=== PATIENT | female | born 1990 | race American Indian/Alaskan Native ===

== ENCOUNTER 2017-07-20 09:54 | Emergency (ER) | payer MEDICAID ==
[2017-07-20 10:47] VITALS: BP 108/66
--- NOTE | 2017-07-20 12:45 | Emergency Department Report ---
Blank Doc - Documentation Documentation: 27-year-old female presents to the hospital complaining of feeling something moving around in the lower part of her abdomen. Denies pain. Last menstrual cycle was in 01/13/2017. States she went [place] [facility] [place] and in May or early June and had negative test at that time. No vaginal bleeding. awaiting US results HCG [id number]
--- NOTE | 2017-07-20 13:52 | Ultrasound Report ---
FINAL REPORT EXAM: US OB > = 14 WEEKS FETUS HISTORY: abd pain TECHNIQUE: Grayscale and color doppler ultrasound of the fetus was performed for anatomic survey. PRIORS: None. FINDINGS: A single, live intrauterine fetus is present in cephalic presentation with a heart rate of 148 beats per minute. The placenta is grade 1 and left lateral in location. No evidence of placenta previa. The maternal cervix is closed measuring 3.2 centimeters in length. The amniotic fluid index is 9.9 centimeters. The 4 chamber view of the heart, stomach, urinary bladder, kidneys and cerebellum demonstrate no specific abnormality. The cisterna magna appears nondilated. No lateral ventricle dilation. The umbilical cord insertion on the fetus appears normal. Three-vessel umbilical cord was seen. The spine was visualized in its entirety without definite or specific abnormality. Biparietal diameter: 23 weeks and 4 days. Head circumference: 23 weeks and 4 days. Abdominal circumference: 23 weeks and 2 days. Femur length: 25 weeks and 4 days. Estimated gestational age based on ultrasound criteria is 24 weeks and 0 days with an HARRY of 11/09/2017. Growth is at the 77th percentile. Estimated weight is 668 grams. IMPRESSION: Live intrauterine fetus measuring at 24 weeks and 0 days gestational age with an HARRY of 11/09/2017. Normal anatomic survey.
--- NOTE | 2017-07-20 14:19 | Emergency Department Report ---
ED HPI - General Chief complaint: Abdominal Pain Stated complaint: UNKNOWN Time Seen by Provider: 07/20/17 12:40 Source: patient Mode of arrival: Ambulatory Limitations: No Limitations - History of Present Illness Initial comments: This is a 27-year-old female nontoxic, well nourished in appearance, no acute signs of distress presents to the ED with c/o of sensation of feeling that something is moving around the lower abdominal region. Patient stated she was seen in [facility] [place] [facility] [place] last [place] with [place] test. Patient stated her last menstrual cycle was in 01/13/2017. Patient denies any abdominal pain, vaginal bleeding, fever, chills, headache, nausea, vomiting, chest pain, shortness of breathe. Patient denies any urinary symptoms. Patient states allergies to Percocet. Denies significant PMH. -: month(s) (1) Location: pelvis Radiation: none Severity scale (0 -10): 0 Consistency: intermittent Improves with: none Worsens with: none Associated symptoms: denies other symptoms. denies: nausea/vomiting, vaginal bleeding, vaginal discharge, abdominal pain, dysuria, headache, vision changes, malaise, dysparuenia, rash, seizure, shortness of breath, syncope, weakness Vaginal bleeding: none :: Yes Number of weeks : 24 Pre- care: none - Related Data Previous Rx's Medication Instructions Recorded Last Taken Type 21/Iron Fu/Folic Acid 1 each PO DAILY #30 tablet 07/20/17 Unknown Rx [ Complete Caplet] Allergies Allergy/AdvReac Type Severity Reaction Status Date / Time acetaminophen [From Percocet] Allergy Hives Verified 07/20/17 10:47 oxycodone [From Percocet] Allergy Hives Verified 07/20/17 10:47 ED Review of Systems ROS: Stated complaint: UNKNOWN Other details as noted in HPI Constitutional: denies: chills, fever Eyes: denies: eye pain, eye discharge, vision change ENT: denies: ear pain, throat pain Respiratory: denies: cough, shortness of breath, wheezing Cardiovascular: denies: chest pain, palpitations Endocrine: no symptoms reported Gastrointestinal: denies: abdominal pain, nausea, diarrhea Genitourinary: denies: urgency, dysuria, discharge Musculoskeletal: denies: back pain, joint swelling, arthralgia Skin: denies: rash, lesions Neurological: denies: headache, weakness, paresthesias Psychiatric: denies: anxiety, depression Hematological/Lymphatic: denies: easy bleeding, easy bruising ED Past Medical Hx - Social History Smoking Status: Never Smoker Substance Use Type: Alcohol - Medications Home Medications: Home Medications Medication Instructions Recorded Confirmed Last Taken Type 21/Iron Fu/Folic Acid 1 each PO DAILY #30 tablet 07/20/17 Unknown Rx [ Complete Caplet] ED Physical Exam - General Limitations: No Limitations General appearance: alert, in no apparent distress - Head Head exam: Present: atraumatic, normocephalic - Eye Eye exam: Present: normal appearance Pupils: Present: normal accommodation - ENT ENT exam: Present: normal exam, mucous membranes moist - Neck Neck exam: Present: normal inspection, full ROM - Respiratory Respiratory exam: Present: normal lung sounds bilaterally. Absent: respiratory distress - Cardiovascular Cardiovascular Exam: Present: regular rate, normal rhythm. Absent: systolic murmur, diastolic murmur, rubs, gallop - GI/Abdominal GI/Abdominal exam: Present: soft, distended ( related), normal bowel sounds. Absent: tenderness, guarding, rebound, rigid, diminished bowel sounds - Rectal Rectal exam: Present: deferred - Extremities Exam Extremities exam: Present: normal inspection, full ROM, normal capillary refill - Back Exam Back exam: Present: normal inspection, full ROM - Neurological Exam Neurological exam: Present: alert, oriented X3 - Psychiatric Psychiatric exam: Present: normal affect, normal mood - Skin Skin exam: Present: warm, dry, intact, normal color. Absent: rash ED Course Vital Signs 07/20/17 10:40 Temperature 98.6 F Pulse Rate 75 Respiratory 16 Rate Blood Pressure 108/66 [Left] - Reevaluation(s) Reevaluation #1: 07/20/17 14:23 Patient is speaking in full sentences with no signs of distress noted. - Consultations Consultation #1: 07/20/17 14:23 Patient has been consulted with Dr. Anderson about patient history, physical exam, and US report and examined and screened patient and agrees to ED plan of care and discharge plan of care. ED Medical Decision Making - Medical Decision Making This is a 27-year-old female that presents with 24 weeks . Patient is stable was examined by me and Dr. Anderson. US obtained within normal limited and dictated by radiologist,. Patient is notified of the us report. UA and Shane obtained. There is no abdominal pain. No vaginal bleeding. Patient was referred to Follow-up with a [facility] doctor in 3-5 days or if symptoms worsen and continue return to emergency room as soon as possible. At time of discharge, the patient does not seem toxic or ill in appearance. No acute signs of distress noted. Patient agrees to discharge treatment plan of care. No further questions noted by the patient. Critical care attestation.: If time is entered above; I have spent that time in minutes in the direct care of this critically ill patient, excluding procedure time. ED Disposition Clinical Impression: Qualifiers: Weeks of gestation: 24 weeks Qualified Code(s): Z3A.24 - 24 weeks gestation of Disposition: DC- TO HOME OR SELFCARE Is pt being admited?: No Does the pt Need Aspirin: No Condition: Stable Instructions: (ED) Additional Instructions: Follow-up with a [facility] doctor in 3-5 days or if symptoms worsen and continue return to emergency room as soon as possible. Prescriptions: 21/Iron Fu/Folic Acid [ Complete Caplet] 1 each PO DAILY #30 tablet Referrals: THU JUAREZ MD [Primary Care Provider] - 3-5 Days SAM LOREDO MD [Staff Physician] - 3-5 Days [facility] [Provider Group] - 3-5 Days Forms: Work/School Release Form(ED)
== END 2017-07-20 15:07 | disposition home or self-care (01) ==
LOC: ED 09:54
DX: O26.892 Other specified pregnancy related conditions, second trimester (principal); R10.30 Lower abdominal pain, unspecified; Z3A.24 24 weeks gestation of pregnancy
CPT/HCPCS: 36415; 76805; 84702; 84703; 99283

== ENCOUNTER 2017-07-24 18:33 | Outpatient (CLI) | payer MEDICAID ==
[2017-07-24 20:49] VITALS: BP 107/57
== END 2017-07-24 20:48 | disposition home or self-care (01) ==
LOC: EDSTATUS 19:12 → TRG 19:15 → LD 19:16 → TRG 20:48
PROVIDERS: ATTEND Obstetrics & Gynecology Gynecology
DX: O36.8120 Decreased fetal movements, second trimester, not applicable or unspecified (principal); W19.XXXA Unspecified fall, initial encounter; Z3A.24 24 weeks gestation of pregnancy; Y93.89 Activity, other specified; Y92.89 Other specified places as the place of occurrence of the external cause; Y99.8 Other external cause status
CPT/HCPCS: 59025

== ENCOUNTER 2017-10-18 01:36 | Outpatient (CLI) | payer MEDICAID ==
[2017-10-18 02:14] VITALS: BP 106/61
[2017-10-18] MEDS ORDERED: PEPCID PO ONE (02:55)
--- NOTE | 2017-10-18 05:04 | Ultrasound Report ---
FINAL REPORT PROCEDURE: US OB LIMITED TECHNIQUE: Real-time limited sonographic examination was performed for evaluation of placenta for each fetus with image documentation (1 or more fetuses). CPT 49463 HISTORY: Abdominal Pain COMPARISON: No prior studies are available for comparison. FINDINGS: Placenta is fundal. Placenta is grade 2. There is no previa or abruption. Fetus is in a cephalic presentation. Heart rate is 132 beats per minute. IMPRESSION: There is no placenta previa or abruption.
--- NOTE | 2017-10-18 05:06 | Ultrasound Report ---
FINAL REPORT PROCEDURE: US OB BPP WO NON-STRESS TECHNIQUE: Real-time limited sonographic examination was performed for evaluation of size, position, heartbeat, fluid volume for each fetus with image documentation (1 or more fetuses). CPT 86163 HISTORY: Abdominal Pain COMPARISON: No prior studies are available for comparison. FINDINGS: breathing movements: 2. movements: 2. posterior and tone: 2. Amniotic fluid volume: 2. Total score: 8/8. Heart rate: 132 beats per minute. IMPRESSION: Normal biophysical profile.
--- NOTE | 2017-10-18 16:59 | Event Note ---
Date: 10/18/17 27 year old presented to L&D triage to rule out labor and with complaint of heartburn. Patient denies leaking of fluid or vaginal bleeding. Patient reports active movement. Patient reports heartburn; not taking any meds for this. NST reactive, category 1 heart rate tracing. Cervix not dilated. Patient found not to be in active labor. Heartburn resolved with po Zantac. Patient was discharged home with labor precautions and instructions to take po Zantac at home. Instructed patient to follow up with her [facility] on Thursday.
== END 2017-10-18 04:32 | disposition home or self-care (01) ==
LOC: TRG 01:36
PROVIDERS: ATTEND Obstetrics & Gynecology
DX: O47.03 False labor before 37 completed weeks of gestation, third trimester (principal); Z3A.37 37 weeks gestation of pregnancy
CPT/HCPCS: 59025; 76815; 76819

== ENCOUNTER 2017-11-05 20:42 | Inpatient (IN) | payer MEDICAID ==
--- NOTE | 2017-11-05 22:33 | Ultrasound Report ---
FINAL REPORT PROCEDURE: US OB BPP WO NON-STRESS TECHNIQUE: Sonographic evaluation for breathing, movement, tone, and amniotic fluid volume was performed. CPT 02440 HISTORY: leaking fluid COMPARISON: No prior studies are available for comparison. FINDINGS: A single intrauterine gestation is identified with a heart rate of 152 beats per minute Amniotic fluid volume: Normal-score 2. At least one vertical pocket > 2 cm or more in vertical axis. breathing: Normal-score 2. movement: Normal-score 2. tone: Normal. Score: 8 of 8. IMPRESSION: Normal biophysical profile.
--- NOTE | 2017-11-05 22:34 | Ultrasound Report ---
FINAL REPORT PROCEDURE: US OB LIMITED TECHNIQUE: Real-time limited sonographic examination was performed for evaluation of amniotic fluid index for each fetus with image documentation (1 or more fetuses). CPT 04214 HISTORY: leaking fluid COMPARISON: No prior studies are available for comparison. FINDINGS: There is single intrauterine gestation with heart rate of 152 beats per minute. Amniotic fluid index is 21.6. IMPRESSION: Amniotic fluid index is within normal limits.
--- NOTE | 2017-11-05 23:32 | History and Physical Report ---
History of Present Illness Chief complaint: loss of fluid History of present illness: 27yo 39 5/7wks presents complaining of loss of fluid since 6am. She reports good movement and no vaginal bleeding. She was a late care entry at [facility] at >20 weeks. She has had routine care since that time co-managed with [facility]. GBS Past History - Obstetrical History : 2 Medications and Allergies Allergies Allergy/AdvReac Type Severity Reaction Status Date / Time acetaminophen [From Percocet] Allergy Hives Verified 07/20/17 10:47 oxycodone [From Percocet] Allergy Hives Verified 07/20/17 10:47 Home Medications Medication Instructions Recorded Confirmed Last Taken Type 21/Iron Fu/Folic Acid 1 each PO DAILY #30 tablet 07/20/17 Unknown Rx [ Complete Caplet] - Vital Signs Vital signs: Vital Signs Temp Resp 98.7 F 18 11/05/17 21:16 11/05/17 21:16 Temp Pulse Resp BP Pulse Ox 98.7 F 86 18 104/64 99 11/05/17 21:16 11/05/17 22:22 11/05/17 21:16 11/05/17 21:28 11/05/17 22:22 - Obstetrical FHR: auscultation normal Cervical Dilatation: 1 Cervical Effacement Percentage: 60 station: -3 Uterine Contraction Pattern: Irregular Results All other labs normal. Assessment and Plan - Patient Problems (1) 39 weeks gestation of Current Visit: Yes Status: Acute Plan to address problem: 1. Nitrazine - equivocal 2. Ultrasound -BPP 11/11 -KELSY 21 3. Ferning - negative 4. Grossly ruptured therefore decision made to admit and augment labor. 5. Pitocin IV 6. IVF, routine labs 7. Epidrual upon request 8. Anticipate . (2) Spontaneous rupture of membranes Current Visit: Yes Status: Acute
[2017-11-05] MEDS ORDERED: ePHEDrine SULFATE IV PRN (23:33)
[2017-11-05] MEDS ORDERED: XYLOCAINE 2% INFILTRATI ONE (23:33)
[2017-11-05] MEDS ORDERED: STADOL IV PRN (23:33)
[2017-11-05] MEDS ORDERED: BRETHINE SUB-Q PRN (23:33)
[2017-11-05] MEDS ORDERED: ZOFRAN IV PRN (23:33)
[2017-11-05] MEDS ORDERED: NARCAN 0.4 MG/1 ML IV PRN (23:33)
[2017-11-05] MEDS ORDERED: BRETHINE IVP PRN (23:33)
[2017-11-05] MEDS ORDERED: MINERAL OIL PO PRN (23:33)
[2017-11-05] MEDS ORDERED: PITOCin/NS 20 UNIT/1000ML DRIP 20 UNITS/1,000 ML BAG IV SCH (23:45)
[2017-11-05] MEDS ORDERED: PITOCin/NS 30 UNIT/500ML 30 UNITS/500 ML BAG IV SCH ×2 (23:45)
[2017-11-06] MEDS: LACTATED RINGERS 1,000 ML IV SCH ×3 (01:51→18:56)
[2017-11-06 02:17] LABS: Hematocrit 36.7 % (30.3-42.9); Hemoglobin 12.5 gm/dl (10.1-14.3); Mean Corpuscular HGB Conc 34 % (30-34); Mean Corpuscular Hemoglobin 28 pg (28-32); Mean Corpuscular Volume 83 fl (79-97); Platelet Count 191 K/mm3 (140-440); Red Blood Count 4.41 M/mm3 (3.65-5.03); Red Cell Distribution Width 16.1 % (13.2-15.2)
--- NOTE | 2017-11-06 10:09 | Progress Note ---
Assessment and Plan - Patient Problems (1) 39 weeks gestation of Current Visit: Yes Status: Acute (2) Spontaneous rupture of membranes Current Visit: Yes Status: Acute Plan to address problem: Afebrile Continue routine labor orders After consultation with Dr. [place], decision made to discontinue Pitocin, have patient take a shower and have a regular diet then restart IOL with low-dose pitocin up to 4 mu/min until active labor Anticipate vaginal delivery Subjective - Subjective Date of service: 11/06/17 Principal diagnosis: 39.6 weeks IUP, IOL due to SROM Interval history: 27yo G2 P 1 0 0 1 @ 39 weeks 6 days being induced due to SROM on 11/05/17 @ 09: 00. Small, clear fluid per pt. No active labor. Oxytocin @ 10 mu/min. Was initiated 11/05/17 @ 23:45. Patient reports: movement normal, no vaginal bleeding, no contractions Objective - Vital Signs Vital Signs: Vital Signs - 12hr 11/05/17 11/05/17 11/05/17 22:12 22:17 22:22 Pulse Rate 85 78 86 Blood Pressure O2 Sat by Pulse 99 99 99 Oximetry 11/06/17 11/06/17 11/06/17 01:10 02:05 02:10 Pulse Rate 82 82 78 Blood Pressure 110/68 O2 Sat by Pulse 99 98 Oximetry 11/06/17 11/06/17 11/06/17 02:15 02:17 02:20 Pulse Rate 86 83 81 Blood Pressure O2 Sat by Pulse 98 80 L 98 Oximetry 11/06/17 11/06/17 11/06/17 02:25 02:30 02:35 Pulse Rate 81 79 79 Blood Pressure O2 Sat by Pulse 97 97 97 Oximetry 11/06/17 11/06/17 11/06/17 02:40 02:45 02:50 Pulse Rate 80 83 86 Blood Pressure O2 Sat by Pulse 97 97 97 Oximetry 11/06/17 11/06/17 11/06/17 02:55 03:00 03:05 Pulse Rate 76 78 81 Blood Pressure O2 Sat by Pulse 97 98 99 Oximetry 11/06/17 11/06/17 11/06/17 03:10 03:15 03:20 Pulse Rate 80 81 74 Blood Pressure O2 Sat by Pulse 98 99 99 Oximetry 11/06/17 11/06/1718 03:25 03:30 03:35 Pulse Rate 85 81 74 Blood Pressure O2 Sat by Pulse 98 97 97 Oximetry 11/06/17 11/06/17 11/06/17 03:40 03:45 03:50 Pulse Rate 74 75 81 Blood Pressure O2 Sat by Pulse 97 96 97 Oximetry 11/06/17 11/06/17 11/06/17 03:55 04:00 04:05 Pulse Rate 73 75 82 Blood Pressure O2 Sat by Pulse 97 98 98 Oximetry 11/06/17 11/06/17 11/06/17 04:11 04:16 04:21 Pulse Rate 84 82 69 Blood Pressure O2 Sat by Pulse 98 98 99 Oximetry 11/06/17 11/06/17 11/06/17 04:26 04:31 04:36 Pulse Rate 79 77 68 Blood Pressure O2 Sat by Pulse 98 97 98 Oximetry 11/06/17 11/06/17 11/06/17 04:41 04:46 04:51 Pulse Rate 97 H 70 74 Blood Pressure O2 Sat by Pulse 97 99 99 Oximetry 11/06/17 11/06/17 11/06/17 04:56 05:00 05:01 Pulse Rate 75 88 73 Blood Pressure O2 Sat by Pulse 97 93 98 Oximetry 11/06/17 11/06/17 11/06/17 05:06 05:11 05:16 Pulse Rate 70 69 71 Blood Pressure O2 Sat by Pulse 99 100 100 Oximetry 11/06/17 11/06/17 11/06/17 05:21 05:26 05:31 Pulse Rate 71 69 71 Blood Pressure O2 Sat by Pulse 100 99 100 Oximetry 11/06/17 11/06/17 11/06/17 05:36 05:41 05:46 Pulse Rate 72 71 72 Blood Pressure O2 Sat by Pulse 98 97 96 Oximetry 11/06/17 11/06/17 11/06/17 05:51 05:56 06:01 Pulse Rate 72 69 71 Blood Pressure O2 Sat by Pulse 97 100 100 Oximetry 11/06/17 11/06/17 11/06/17 06:06 06:07 06:11 Pulse Rate 73 79 73 Blood Pressure O2 Sat by Pulse 99 79 L 98 Oximetry 11/06/17 11/06/17 11/06/17 06:16 06:21 06:26 Pulse Rate 71 74 70 Blood Pressure O2 Sat by Pulse 99 100 100 Oximetry 11/06/17 11/06/17 11/06/17 06:31 06:36 06:41 Pulse Rate 75 77 77 Blood Pressure O2 Sat by Pulse 100 100 100 Oximetry 11/06/17 11/06/17 11/06/17 06:46 06:51 07:22 Pulse Rate 73 83 77 Blood Pressure 107/58 O2 Sat by Pulse 100 100 Oximetry 11/06/17 11/06/17 11/06/17 07:54 08:23 08:54 Pulse Rate 68 73 69 Blood Pressure 92/51 116/72 97/52 O2 Sat by Pulse Oximetry 11/06/17 09:24 Pulse Rate 71 Blood Pressure 117/62 O2 Sat by Pulse Oximetry - Exam FHR: auscultation normal, category 1 FHR comments: baseline 130, moderate variability, + accels, no decels Uterine Contraction Monitor Mode: External Cervical Dilatation: 1 (per RN) Cervical Effacement Percentage: 60 (per RN) station: -2 (per RN) Uterine Contraction Frequency (min): 1-3 Uterine Contraction Pattern: Regular - Labs Labs: Abnormal Labs 11/06/17 01:30 WBC 13.4 H RDW 16.1 H Laboratory Results - last 24 hr 11/06/17 11/06/17 01:30 01:30 WBC 13.4 H RBC 4.41 Hgb 12.5 Hct 36.7 MCV 83 MCH 28 MCHC 34 RDW 16.1 H Plt Count 191 Blood Type O POSITIVE Antibody Screen Negative
--- NOTE | 2017-11-06 15:53 | Progress Note ---
Assessment and Plan A: 27-year-old at 39 weeks -Cat 1 tracing -Currently 4 cm P: -Will allow patient to eat and rest at this time -Will restart Pitocin 4 hours after eating -Discussed above with the patient -Anticipate normal vaginal delivery - Patient Problems (1) 39 weeks gestation of Current Visit: Yes Status: Acute (2) Spontaneous rupture of membranes Current Visit: Yes Status: Acute Subjective - Subjective Date of service: 11/06/17 Principal diagnosis: 39.6 weeks IUP, IOL due to SROM Interval history: She was seen and examined, stable doing well. No fever or chills. She has some mild show Patient reports: new complaints, loss of fluid, vaginal bleeding, movement normal, no contractions Objective - Vital Signs Vital Signs: Vital Signs - 12hr 11/06/17 11/06/17 11/06/17 03:55 04:00 04:05 Temperature Pulse Rate 73 75 82 Blood Pressure O2 Sat by Pulse 97 98 98 Oximetry 11/06/17 11/06/17 11/06/17 04:11 04:16 04:21 Temperature Pulse Rate 84 82 69 Blood Pressure O2 Sat by Pulse 98 98 99 Oximetry 11/06/17 11/06/17 11/06/17 04:26 04:31 04:36 Temperature Pulse Rate 79 77 68 Blood Pressure O2 Sat by Pulse 98 97 98 Oximetry 11/06/17 11/06/17 11/06/17 04:41 04:46 04:51 Temperature Pulse Rate 97 H 70 74 Blood Pressure O2 Sat by Pulse 97 99 99 Oximetry 11/06/17 11/06/17 11/06/17 04:56 05:00 05:01 Temperature Pulse Rate 75 88 73 Blood Pressure O2 Sat by Pulse 97 93 98 Oximetry 11/06/17 11/06/17 11/06/17 05:06 05:11 05:16 Temperature Pulse Rate 70 69 71 Blood Pressure O2 Sat by Pulse 99 100 100 Oximetry 11/06/17 11/06/17 11/06/17 05:21 05:26 05:31 Temperature Pulse Rate 71 69 71 Blood Pressure O2 Sat by Pulse 100 99 100 Oximetry 11/06/17 11/06/17 11/06/17 05:36 05:41 05:46 Temperature Pulse Rate 72 71 72 Blood Pressure O2 Sat by Pulse 98 97 96 Oximetry 11/06/17 11/06/17 11/06/17 05:51 05:56 06:01 Temperature Pulse Rate 72 69 71 Blood Pressure O2 Sat by Pulse 97 100 100 Oximetry 11/06/17 11/06/17 11/06/17 06:06 06:07 06:11 Temperature Pulse Rate 73 79 73 Blood Pressure O2 Sat by Pulse 99 79 L 98 Oximetry 11/06/17 11/06/17 11/06/17 06:16 06:21 06:26 Temperature Pulse Rate 71 74 70 Blood Pressure O2 Sat by Pulse 99 100 100 Oximetry 11/06/17 11/06/17 11/06/17 06:31 06:36 06:41 Temperature Pulse Rate 75 77 77 Blood Pressure O2 Sat by Pulse 100 100 100 Oximetry 11/06/17 11/06/17 11/06/17 06:46 06:51 07:00 Temperature 98.7 F Pulse Rate 73 83 Blood Pressure O2 Sat by Pulse 100 100 Oximetry 11/06/17 11/06/17 11/06/17 07:22 07:54 08:23 Temperature Pulse Rate 77 68 73 Blood Pressure 107/58 92/51 116/72 O2 Sat by Pulse Oximetry 11/06/17 11/06/17 11/06/17 08:54 09:00 09:24 Temperature 98.6 F Pulse Rate 69 71 Blood Pressure 97/52 117/62 O2 Sat by Pulse Oximetry 11/06/17 11/06/17 11/06/17 11:00 11:57 13:00 Temperature 97.8 F 98.4 F Pulse Rate 83 Blood Pressure 105/62 O2 Sat by Pulse Oximetry 11/06/17 11/06/17 11/06/17 13:39 13:44 13:49 Temperature Pulse Rate 77 78 78 Blood Pressure O2 Sat by Pulse 100 100 100 Oximetry 11/06/17 11/06/17 11/06/17 13:54 13:59 14:04 Temperature Pulse Rate 82 76 79 Blood Pressure O2 Sat by Pulse 100 100 99 Oximetry 11/06/17 11/06/17 11/06/17 14:09 14:14 14:19 Temperature Pulse Rate 76 75 71 Blood Pressure O2 Sat by Pulse 99 100 99 Oximetry 11/06/17 11/06/17 11/06/17 14:24 14:29 14:30 Temperature Pulse Rate 69 72 73 Blood Pressure 106/58 O2 Sat by Pulse 98 99 Oximetry 11/06/17 11/06/17 11/06/17 14:34 14:39 14:44 Temperature Pulse Rate 81 73 76 Blood Pressure O2 Sat by Pulse 100 100 100 Oximetry 11/06/17 11/06/17 11/06/17 14:49 14:54 14:59 Temperature Pulse Rate 80 71 87 Blood Pressure O2 Sat by Pulse 99 98 99 Oximetry 11/06/17 11/06/17 11/06/17 15:00 15:04 15:09 Temperature 98.6 F Pulse Rate 81 82 88 Blood Pressure 113/67 O2 Sat by Pulse 99 100 Oximetry 11/06/17 11/06/17 11/06/17 15:14 15:19 15:31 Temperature Pulse Rate 91 H 81 79 Blood Pressure 125/64 O2 Sat by Pulse 100 100 Oximetry - Exam Abdomen: Present: normal appearance, soft FHR: category 1 Cervical Dilatation: 4 Cervical Effacement Percentage: 80 station: -2 - Labs Labs: Abnormal Labs 11/06/17 01:30 WBC 13.4 H RDW 16.1 H Laboratory Results - last 24 hr 11/06/17 11/06/17 11/06/17 01:30 01:30 01:30 WBC 13.4 H RBC 4.41 Hgb 12.5 Hct 36.7 MCV 83 MCH 28 MCHC 34 RDW 16.1 H Plt Count 191 RPR Nonreactive Blood Type O POSITIVE Antibody Screen Negative
--- NOTE | 2017-11-06 18:16 | Event Note ---
Date: 11/06/17 Assumed care of patient. Patient is now in labor; she states her water broke yesterday morning. Patient denies fever or chills. She requests epidural. SVE 5- 6/90/-2/cephalic. Small forebag felt. Nurse notified that patient would like epidural now. Category 2 heart rate tracing. FHR baseline 135-140 with minimal variability and early and variable FHR decelerations. Oxygen applied per face mask at 10 LPM. Patient positioned in lateral position. Contractions every 3 minutes, moderate to palpation. Uterus palpates soft between contractions. Afebrile. Vital signs stable.
[2017-11-06] MEDS ORDERED: NARCAN 2 MG/2 ML IV PRN (18:22)
[2017-11-06] MEDS ORDERED: ePHEDrine SULFATE IV PRN (18:22)
--- NOTE | 2017-11-06 18:22 | Anesthesia Consultation ---
Anesthesia Consult and Med Hx Date of service: 11/06/17 - Airway Anesthetic Teeth Evaluation: Good ROM Head & Neck: Adequate Mental/Hyoid Distance: Adequate Mallampati Class: Class II Intubation Access Assessment: Good - Pulmonary Exam CTA: Yes - Cardiac Exam Cardiac Exam: No Murmur - Pre-Operative Health Status ASA Pre-Surgery Classification: ASA2 Proposed Anesthetic Plan: Epidural - Pulmonary Hx Asthma: No COPD: No Hx Pneumonia: No - Cardiovascular System Hx Hypertension: No - Central Nervous System Hx Seizures: No Hx Psychiatric Problems: No - Endocrine Hx Renal Disease: No Hx End Stage Renal Disease: No Hx Hypothyroidism: No Hx Hyperthyroidism: No - Hematic Hx Anemia: Yes Hx Sickle Cell Disease: No - Other Systems Hx Alcohol Use: No
[2017-11-06] MEDS ORDERED: fentaNYL-BUPIV 2 MCG/ML-0.125% 200 MCG/100 ML BAG EPIDURAL SCH (19:00)
[2017-11-06] MEDS ORDERED: SUBLIMAZE IV ONE (19:31)
[2017-11-06] MEDS ORDERED: NORCO 5/325 PO PRN (20:00)
[2017-11-06] MEDS ORDERED: PHENERGAN PO PRN (20:00)
[2017-11-06] MEDS ORDERED: TUCKS PAD TP PRN (20:00)
[2017-11-06] MEDS ORDERED: MILK OF MAGNESIA PO PRN (20:00)
[2017-11-06] MEDS ORDERED: SODIUM CHLORIDE FLUSH SYRINGE 10 ML IV NR (20:00)
[2017-11-06] MEDS ORDERED: ZOFRAN IV PRN (20:00)
[2017-11-06] MEDS ORDERED: LANSINOH TP PRN (20:00)
--- NOTE | 2017-11-06 20:10 | Procedure Note ---
OB Delivery Note - Delivery Date of Delivery: 11/06/17 Surgeon: BLESSING CAR Estimated blood loss: other (250 cc) - Vaginal Delivery presentation: vertex Delivery position: OA Intrapartum events: meconium Delivery augmentation: pitocin Delivery monitor: external FHT, external uterine Route of delivery: Delivery placenta: spontaneous Delivery cord: 3 umbilical vessels Episiotomy: none Delivery laceration: none Anesthesia: none Delivery comments: of liveborn 6 lb. 12 oz. female infant OA over intact perineum at 19:35. Thin meconium stained amniotic fluid. Spontaneous cry and respirations; vigorous baby. Baby suctioned with bulb syringe; NICU present for delivery. 3 vessel cord double clamped and cut. Cord blood obtained. Spontaneous delivery of intact placenta and membranes by wilks mechanism. EBL 250 cc. Pitocin to IV fluids after delivery of placenta. Fundus firm and midline. Vaginal sweep negative. No lacerations noted. Sponge count correct.
[2017-11-07 08:49] LABS: Hematocrit 31.3 % (30.3-42.9); Hemoglobin 10.6 gm/dl (10.1-14.3)
[2017-11-07] MEDS: COLACE PO SCH (10:21)
--- NOTE | 2017-11-07 11:44 | Progress Note ---
Assessment and Plan A: day 1 S/P . P: Anticipate discharge tomorrow. Subjective - Subjective Date of service: 11/07/17 Principal diagnosis: day 1 S/P spontaneous vaginal delivery Interval history: day 1 S/P spontaneous vaginal delivery. Doing well. Patient reports small amount of lochia. / bottlefeeding. Voiding without difficulty. Ambulating well. Tolerating a regular diet without nausea or vomiting. Patient denies cough, chest pain, shortness of breath, leg pain, abdominal pain , heavy bleeding, or symptoms of depression. Patient is undecided what she wants to use for contraception. Patient reports: appetite normal, voiding normally, pain well controlled, flatus , ambulating normally : doing well Objective - Vital Signs Latest vital signs: Vital Signs Temp Pulse Resp BP BP Pulse Ox 11/07/17 08:18 98.6 F 89 16 89/50 97 11/07/17 07:21 98.6 F 18 89/50 11/07/17 04:00 98 F 71 16 110/78 11/06/17 21:30 82 121/69 11/06/17 21:00 96 H 135/73 11/06/17 20:30 110 H 122/61 11/06/17 20:21 109 H 127/68 11/06/17 20:15 108 H 144/66 11/06/17 20:06 114 H 139/85 11/06/17 19:50 98 F 11/06/17 19:00 127 H 116/76 11/06/17 18:02 86 101/57 11/06/17 17:30 100 H 118/78 11/06/17 17:04 125 H 118/68 11/06/17 17:00 98.7 F 11/06/17 16:30 102 H 111/57 11/06/17 16:00 96 H 114/61 11/06/17 15:31 79 125/64 11/06/17 15:19 81 100 11/06/17 15:14 91 H 100 11/06/17 15:09 88 100 11/06/17 15:04 82 99 11/06/17 15:00 98.6 F 81 113/67 11/06/17 14:59 87 99 11/06/17 14:54 71 98 11/06/17 14:49 80 99 11/06/17 14:44 76 100 11/06/17 14:39 73 100 11/06/17 14:34 81 100 11/06/17 14:30 73 106/58 11/06/17 14:29 72 99 11/06/17 14:24 69 98 11/06/17 14:19 71 99 11/06/17 14:14 75 100 11/06/17 14:09 76 99 11/06/17 14:04 79 99 11/06/17 13:59 76 100 11/06/17 13:54 82 100 11/06/17 13:49 78 100 11/06/17 13:44 78 100 11/06/17 13:39 77 100 11/06/17 13:00 98.4 F 11/06/17 11:57 83 105/62 Intake and Output 11/06/17 11/07/17 11/07/17 23:59 07:59 15:59 Intake Total 1129.583 240 Output Total 1600 400 Balance -470.417 -160 Intake: IV 889.583 Lactated Ringers 1,000 ml 889.583 @ 125 mls/hr IV DIRECT CAITIE Rx#:[id number] Oral 240 240 Output: Urine 600 400 Void 600 400 Other 1000 Other: Total, Intake Amount 240 240 Total, Output Amount 600 400 Estimated Blood Loss 250 - Exam Breasts: Present: deferred Cardiovascular: Present: Regular rate, Normal S1, Normal S2, No murmurs Lungs: Present: Clear to auscultation Abdomen: Present: normal appearance, soft, normal bowel sounds. Absent: distention, tenderness, guarding Uterus: Present: normal, firm. Absent: bogginess, tenderness, fundal height below umbilicus Extremities: Present: normal. Absent: tenderness, edema
[2017-11-07] MEDS: MOTRIN PO SCH ×2 (12:40→18:01)
[2017-11-07] MEDS ORDERED: POLYCILLIN/NS 2 GM/100 ML 2 GM/100 ML BAG IV SCH (20:00)
[2017-11-07] MEDS ORDERED: FEOSOL PO SCH (22:00)
[2017-11-08] MEDS: MOTRIN PO SCH ×3 (07:20→15:46)
[2017-11-08] MEDS: COLACE PO SCH (09:33)
[2017-11-08] MEDS ORDERED: DEPO-PROVERA (CONTRACEPTION) IM ONE (17:29)
--- NOTE | 2017-11-08 17:36 | Discharge Summary ---
Providers - Providers Date of Admission: 11/06/17 00:38 Date of discharge: 11/08/17 Attending physician: KERA HOANG MD None Primary care physician: KERA HOANG MD Hospitalization Reason for admission: rupture of membranes Delivery: Episiotomy: none Laceration: none Other procedures: none complications: none Discharge diagnosis: IUP at term delivered Albia baby: female Pertinent studies: Labs Hospital course: Normal hospital course Condition at discharge: Good Disposition: DC-01 TO HOME OR SELFCARE - Discharge Diagnoses (1) Term delivered Status: Acute Plan - Provider Discharge Summary Activity: routine, no sex for 6 weeks, no heavy lifting 4 weeks, no strenuous exercise Diet: routine Instructions: routine Additional instructions: Call your doctor immediately for: * Fever > 100.5 * Heavy vaginal bleeding ( >1 pad per hour) * Severe persistent headache * Shortness of breath * Reddened, hot, painful area to leg or breast - Follow up plan Follow up: KERA HOANG MD [Primary Care Provider] - 6 Weeks
--- NOTE | 2017-11-08 17:39 | Progress Note ---
Assessment and Plan A: day 2. P: Discharge patient home today. Advised patient to continue taking her iron supplements and vitamins at home. Advised pt. to use Motrin for cramping. discharge instructions and warning signs discussed with patient. Advised pt. to avoid sex, lifting, driving, and heavy housework. Advised pt. to follow up with [facility] in 6 weeks. Depo Provera given for contraception prior to hospital discharge. - Patient Problems (1) Term delivered Current Visit: Yes Status: Acute Subjective - Subjective Date of service: 11/08/17 Principal diagnosis: day 2 S/P spontaneous vaginal delivery Interval history: day 2 S/P spontaneous vaginal delivery. Doing well. Patient reports small amount of lochia. / bottlefeeding. Voiding without difficulty. Ambulating well. Tolerating a regular diet without nausea or vomiting. Patient denies cough, chest pain, shortness of breath, leg pain, abdominal pain , heavy bleeding, or symptoms of depression. Patient wants to use Depo Provera for contraception prior to hospital discharge. Patient reports: appetite normal, voiding normally, pain well controlled, flatus , ambulating normally [place]: doing well Objective - Vital Signs Latest vital signs: Vital Signs Temp Pulse Resp BP Pulse Ox 11/08/17 15:46 18 11/08/17 08:26 97.3 F L 69 18 116/78 100 11/08/17 01:00 98 F 71 18 101/71 11/07/17 18:01 18 Intake and Output 11/08/17 11/08/17 11/08/17 07:59 15:59 23:59 Intake Total 300 Balance 300 Intake: Intake, Free Water 300 - Exam Breasts: Present: deferred Cardiovascular: Present: Regular rate, Normal S1, Normal S2 Lungs: Present: Clear to auscultation Abdomen: Present: normal appearance, soft, normal bowel sounds. Absent: distention, tenderness, guarding Uterus: Present: normal, firm, fundal height below umbilicus. Absent: bogginess , tenderness Extremities: Present: normal. Absent: tenderness, edema
[2017-11-09 05:21] VITALS: BP 112/79
== END 2017-11-08 21:40 | disposition home or self-care (01) | DRG 775 ==
LOC: TRG 20:42 → LD 11-06 00:38 → TRG 11-06 00:38 → OB 11-07 04:08
PROVIDERS: ADMIT Obstetrics & Gynecology; ATTEND Obstetrics & Gynecology
PROC: 10E0XZZ Delivery of Products of Conception, External Approach (ICD-10-PCS; principal; 2017-11-06)
PROC: 3E033VJ Introduction of Other Hormone into Peripheral Vein, Percutaneous Approach (ICD-10-PCS; 2017-11-06)
DX: O76 Abnormality in fetal heart rate and rhythm complicating labor and delivery (principal); Z37.0 Single live birth; O77.0 Labor and delivery complicated by meconium in amniotic fluid; Z88.6 Allergy status to analgesic agent; Z88.5 Allergy status to narcotic agent; Z3A.39 39 weeks gestation of pregnancy
CPT/HCPCS: 36415; 76815; 76819; 85014; 85018; 85027; 86592; 86850; 86900; 86901; 88307; J1050; J2590; J7120

== ENCOUNTER 2020-04-11 01:45 | Emergency (ER) | payer MEDICAID ==
[2020-04-11] MEDS ORDERED: FAMOTIDINE 20 MG TAB PO ONE (02:32)
[2020-04-11] MEDS ORDERED: dexAMETHasone 20 MG/5 ML VIAL IM ONE (02:32)
[2020-04-11] MEDS ORDERED: diphenhydrAMINE 25 MG CAP PO ONE (02:32)
--- NOTE | 2020-04-11 02:55 | Emergency Department Report ---
ED General Adult HPI - General Chief complaint: Skin Rash Stated complaint: ALLERGIC REACTION Time Seen by Provider: 04/11/20 02:30 Source: patient Mode of arrival: Ambulatory Limitations: No Limitations - History of Present Illness Initial comments: Patient is a 29-year-old -[place] female who presents for rash to bilateral arms neck and chest x2 days. Patient states she woke with rash and itching. Denies suspicious food or contact. Symptoms include itching and erythema. Patient denies hives, no shortness of breath, no stridor, no throat swelling , no chest pain.. Symptoms are exacerbated by it scratch cycle. Symptoms are relieved by it scratch cycle. Patient has not taken [id number] Antihistamine. - Related Data Home Medications Medication Instructions Recorded Confirmed Last Taken No Known Home Medications [No 11/06/17 11/06/17 Unknown Reported Home Medications] Allergies Allergy/AdvReac Type Severity Reaction Status Date / Time oxycodone [From Percocet] Allergy Hives Verified 07/20/17 10:47 ED Review of Systems ROS: Stated complaint: ALLERGIC REACTION Other details as noted in HPI Constitutional: denies: chills, fever Eyes: denies: eye pain, eye discharge, vision change ENT: denies: ear pain, throat pain Respiratory: denies: cough, shortness of breath, wheezing Cardiovascular: denies: chest pain, palpitations Endocrine: no symptoms reported Gastrointestinal: denies: abdominal pain, nausea, diarrhea Genitourinary: denies: urgency, dysuria, discharge Musculoskeletal: denies: back pain, joint swelling, arthralgia Skin: rash Neurological: denies: headache, weakness, paresthesias Psychiatric: denies: anxiety, depression Hematological/Lymphatic: denies: easy bleeding, easy bruising ED Past Medical Hx - Past Medical History Previous Medical History?: No Hx Hypertension: No Hx Congestive Heart Failure: No Hx Diabetes: No Hx Deep Vein Thrombosis: No Hx Renal Disease: No Hx Sickle Cell Disease: No Hx Seizures: No Hx Asthma: No Hx COPD: No Hx HIV: No - Surgical History Hx Breast Surgery: Yes (reducion) - Social History Smoking Status: Never Smoker Substance Use Type: Alcohol - Medications Home Medications: Home Medications Medication Instructions Recorded Confirmed Last Taken Type No Known Home Medications [No 11/06/17 11/06/17 Unknown History Reported Home Medications] ED Physical Exam - General Limitations: No Limitations General appearance: alert, in no apparent distress - Head Head exam: Present: atraumatic, normocephalic - Eye Eye exam: Present: normal appearance, PERRL, EOMI Pupils: Present: normal accommodation - ENT ENT exam: Present: normal orophraynx, mucous membranes moist, TM's normal bilaterally, normal external ear exam - Neck Neck exam: Present: normal inspection - Respiratory Respiratory exam: Present: normal lung sounds bilaterally. Absent: respiratory distress, wheezes, stridor, chest wall tenderness - Cardiovascular Cardiovascular Exam: Present: regular rate, normal rhythm, normal heart sounds. Absent: systolic murmur, diastolic murmur, rubs, gallop - GI/Abdominal GI/Abdominal exam: Present: soft, normal bowel sounds. Absent: distended, tenderness, bruit, hernia - Rectal Rectal exam: Present: deferred - Extremities Exam Extremities exam: Present: normal inspection, full ROM, normal capillary refill. Absent: tenderness - Back Exam Back exam: Present: normal inspection, full ROM. Absent: tenderness - Neurological Exam Neurological exam: Present: alert, oriented X3, CN II-XII intact, normal gait - Expanded Neurological Exam Expanded Patient oriented to: Present: person, place, time Speech: Present: fluid speech Cranial nerves: EOM's Intact: Normal Best Eye Response (Omi): (4) open spontaneously Best Motor Response ([place]): (6) obeys commands Best Verbal Response (Omi): (5) oriented Omi Total: 15 - Psychiatric Psychiatric exam: Present: normal affect, normal mood - Skin Skin exam: Present: warm, dry, erythema, urticaria (bilat arms trunk neck no open wounds no weeping, no fever mild erthema ) ED Course Vital Signs 04/11/20 01:50 Temperature 97.9 F Pulse Rate 113 H Respiratory 18 Rate Blood Pressure 141/106 O2 Sat by Pulse 98 Oximetry ED Medical Decision Making - Medical Decision Making This is a contact dermatitis. There is no respiratory distress. Plan DC to home with prescriptions. I have discussed EpiPen with this patient. Patient had return demonstrated understanding of application and use of same. Patient will be DC'd home in stable condition at this time. Patient currently alert oriented x3 airway is patent. Symptoms are minimal at 2/10 per patient. Critical care attestation.: If time is entered above; I have spent that time in minutes in the direct care of this critically ill patient, excluding procedure time. ED Disposition Clinical Impression: Contact dermatitis Qualifiers: Contact dermatitis type: allergic Contact dermatitis trigger: unspecified trigger Qualified Code(s): L23.9 - Allergic contact dermatitis, unspecified cause Disposition: - TO HOME OR SELFCARE Is pt being admited?: No Does the pt Need Aspirin: No Condition: Stable Instructions: Contact Dermatitis Additional Instructions: take medications as prescribed, return to emergency if symptoms worsen, pt vervbalized agreement and understanding of same. Referrals: HUSSAIN DUKE MD [Staff Physician] - 3-5 Days Forms: Work/School Release Form(ED)
[2020-04-11 06:29] VITALS: BP 120/78
== END 2020-04-11 05:10 | disposition home or self-care (01) ==
LOC: ED 01:45
DX: L23.9 Allergic contact dermatitis, unspecified cause (principal); Z98.890 Other specified postprocedural states; Z88.8 Allergy status to other drugs, medicaments and biological substances
CPT/HCPCS: 96372; 99282; J1100

== ENCOUNTER 2020-05-27 15:07 | Emergency (ER) | payer MEDICAID ==
[2020-05-27] MEDS ORDERED: FAMOTIDINE 20 MG/2 ML INJ IV ONE (16:05)
[2020-05-27] MEDS ORDERED: dexAMETHasone 20 MG/5 ML VIAL IV ONE (16:05)
[2020-05-27] MEDS ORDERED: SODIUM CHLORIDE 0.9% 1000 ML 1,000 ML IV ONE (16:05)
[2020-05-27] MEDS ORDERED: diphenhydrAMINE 50 MG/ML VIAL IV ONE (16:05)
--- NOTE | 2020-05-27 17:32 | Emergency Department Report ---
HPI - General Chief Complaint: Allergic Reaction Time Seen by Provider: 05/27/20 16:05 ED Past Medical Hx - Past Medical History Hx Hypertension: No Hx Congestive Heart Failure: No Hx Diabetes: No Hx Deep Vein Thrombosis: No Hx Renal Disease: No Hx Sickle Cell Disease: No Hx Seizures: No Hx Asthma: No Hx COPD: No Hx HIV: No - Surgical History Past Surgical History?: Yes Hx Breast Surgery: Yes (reducion) - Social History Smoking Status: Never Smoker Substance Use Type: Alcohol - Medications Home Medications: Home Medications Medication Instructions Recorded Confirmed Last Taken Type Famotidine [Pepcid] 20 mg PO BID #20 tablet 04/11/20 Unknown Rx diphenhydrAMINE [Benadryl CAP] 25 mg PO Q6HR PRN #30 capsule 04/11/20 Unknown Rx predniSONE [Deltasone] 40 mg PO QDAY 5 Days #10 tab 04/11/20 Unknown Rx ED Review of Systems ROS: Stated complaint: ALLERGIC REACTION Other details as noted in HPI Critical care attestation.: If time is entered above; I have spent that time in minutes in the direct care of this critically ill patient, excluding procedure time. ED Disposition Condition: Stable Referrals: PRIMARY CARE [Primary Care Provider] - 3-5 Days
[2020-05-27 17:37] VITALS: BP 106/79
--- NOTE | 2020-05-27 17:37 | Emergency Department Report ---
ED Allergic Reaction HPI - General Chief complaint: Allergic Reaction Stated complaint: ALLERGIC REACTION Time Seen by Provider: 05/27/20 16:05 Source: patient Mode of arrival: Ambulatory Limitations: No Limitations - History of Present Illness Initial Comments: This is a 29-year-old female nontoxic, well nourished in appearance, no acute signs of distress presents to the ED with c/o of chest reticular rash with lip swelling that started prior to arrival. Patient states she has history of similar symptoms after eating [place]ien food and has eaten Nigerien food prior to the symptoms. Patient states it is itching and redness. Patient denies any drooling, hoarseness or any other facial swelling. Patient denies any trauma. She denies any fever, chills, nausea, vomiting, chest pain, shortness of breath, headache, stiff neck, numbness or tingling. Patient states allergies to oxycodone. MD Complaint: allergic reaction, hives, facial swelling -: This evening Exposure: food Symptoms: rash, itching, lip swelling. denies: facial swelling, difficulty swallowing, difficulty breathing, orolingual swelling, hoarseness, syncopy, dizziness, nausea, vomiting, abdominal pain Severity: mild Treatment Prior to Arrival: none - Related Data Previous Rx's Medication Instructions Recorded Last Taken Type Famotidine [Pepcid] 20 mg PO BID #20 tablet 04/11/20 Unknown Rx diphenhydrAMINE [Benadryl CAP] 25 mg PO Q6HR PRN #30 capsule 04/11/20 Unknown Rx predniSONE [Deltasone] 40 mg PO QDAY 5 Days #10 tab 04/11/20 Unknown Rx Prednisone [predniSONE 10 mg 10 mg PO .TAPER #1 tab.ds.pk 05/27/20 Unknown Rx (6-Day Pack, 21 Tabs)] diphenhydrAMINE [Benadryl CAP] 25 mg PO Q6HR PRN #12 capsule 05/27/20 Unknown Rx Allergies Allergy/AdvReac Type Severity Reaction Status Date / Time oxycodone [From Percocet] Allergy Hives Verified 07/20/17 10:47 ED Review of Systems ROS: Stated complaint: ALLERGIC REACTION Other details as noted in HPI Comment: All other systems reviewed and negative Constitutional: denies: chills, fever Eyes: denies: eye pain, eye discharge, vision change ENT: denies: ear pain, throat pain Respiratory: denies: cough, shortness of breath, wheezing Cardiovascular: denies: chest pain, palpitations Endocrine: no symptoms reported Gastrointestinal: denies: abdominal pain, nausea, diarrhea Genitourinary: denies: urgency, dysuria, discharge Musculoskeletal: denies: back pain, joint swelling, arthralgia Skin: rash. denies: lesions Neurological: denies: headache, weakness, paresthesias Psychiatric: denies: anxiety, depression Hematological/Lymphatic: denies: easy bleeding, easy bruising ED Past Medical Hx - Past Medical History Hx Hypertension: No Hx Congestive Heart Failure: No Hx Diabetes: No Hx Deep Vein Thrombosis: No Hx Renal Disease: No Hx Sickle Cell Disease: No Hx Seizures: No Hx Asthma: No Hx COPD: No Hx HIV: No - Surgical History Past Surgical History?: Yes Hx Breast Surgery: Yes (reducion) - Social History Smoking Status: Never Smoker Substance Use Type: Alcohol - Medications Home Medications: Home Medications Medication Instructions Recorded Confirmed Last Taken Type Famotidine [Pepcid] 20 mg PO BID #20 tablet 04/11/20 Unknown Rx diphenhydrAMINE [Benadryl CAP] 25 mg PO Q6HR PRN #30 capsule 04/11/20 Unknown Rx predniSONE [Deltasone] 40 mg PO QDAY 5 Days #10 tab 04/11/20 Unknown Rx Prednisone [predniSONE 10 mg 10 mg PO .TAPER #1 tab.ds.pk 05/27/20 Unknown Rx (6-Day Pack, 21 Tabs)] diphenhydrAMINE [Benadryl CAP] 25 mg PO Q6HR PRN #12 capsule 05/27/20 Unknown Rx ED Physical Exam - General Limitations: No Limitations General appearance: alert, in no apparent distress - Head Head exam: Present: atraumatic, normocephalic - Eye Eye exam: Present: normal appearance - ENT ENT exam: Present: normal exam, normal orophraynx, other (uvula midline. bilateral upper lip swelling. No intral oral edema.) - Neck Neck exam: Present: normal inspection, full ROM. Absent: tenderness, meningismus, lymphadenopathy - Respiratory Respiratory exam: Present: normal lung sounds bilaterally. Absent: respiratory distress, wheezes, rales, rhonchi, stridor, chest wall tenderness, accessory muscle use, decreased breath sounds, prolonged expiratory - Cardiovascular Cardiovascular Exam: Present: regular rate, normal rhythm, normal heart sounds. Absent: irregular rhythm, systolic murmur, diastolic murmur, rubs, gallop - Extremities Exam Extremities exam: Present: full ROM - Back Exam Back exam: Present: full ROM - Neurological Exam Neurological exam: Present: alert, oriented X3, normal gait - Psychiatric Psychiatric exam: Present: normal affect, normal mood - Skin Skin exam: Present: warm, dry, intact, normal color, urticaria (to chest). Absent: cyanosis, diaphoretic, erythema, vesicles, petechiae, pallor, abrasion, ecchymosis ED Course - Reevaluation(s) Reevaluation #1: 05/27/20 17:35 Patient is speaking in full sentences with no signs of distress noted. ED Medical Decision Making - Medical Decision Making This is a 29-year-old female that presents with allergic reaction. Patient is stable was examined by me. There is no cellulitis. No hoarseness. Patient received 1 L normal saline, Benadryl, Decadron, and Pepcid in the ED IV. Ulices marietta was observed for 2 hours prior to treatment which symptoms significantly improved with no worsening lip swelling or rash. Patient was instructed not to operate any machinery after discharge due to possible drowsiness of Benadryl. Patient stated that a family member will drive patient home after discharge. Patient is discharged with prednisone and Benadryl. Patient was referred to Follow-up with a primary care doctor in 3-5 days or if symptoms worsen and continue return to emergency room as soon as possible. At time of discharge, the patient does not seem toxic or ill in appearance. No acute signs of distress noted. Patient agrees to discharge treatment plan of care. No further questions noted by the patient. Critical care attestation.: If time is entered above; I have spent that time in minutes in the direct care of this critically ill patient, excluding procedure time. ED Disposition Clinical Impression: Allergic reaction Qualifiers: Encounter type: initial encounter Qualified Code(s): T78.40XA - Allergy, unspecified, initial encounter Disposition: TO HOME OR SELFCARE Is pt being admited?: No Does the pt Need Aspirin: No Condition: Stable Instructions: Angioedema, [id number], Diphenhydramine capsules or tablets Additional Instructions: Follow-up with a primary care doctor in 3-5 days or if symptoms worsen and continue return to emergency room as soon as possible. Prescriptions: diphenhydrAMINE [Benadryl CAP] 25 mg PO Q6HR PRN #12 capsule PRN Reason: Itching Prednisone [predniSONE 10 mg (6-Day Pack, 21 Tabs)] 10 mg PO .TAPER #1 tab.ds.pk Referrals: PRIMARY CAREMD [Primary Care Provider] - 3-5 Days BRAIN JIMENEZ MD [Staff Physician] - 3-5 Days Time of Disposition: 17:37
== END 2020-05-27 18:07 | disposition home or self-care (01) ==
LOC: ED 15:07
DX: T78.40XA Allergy, unspecified, initial encounter (principal); Z98.890 Other specified postprocedural states; Z79.899 Other long term (current) drug therapy; Z88.8 Allergy status to other drugs, medicaments and biological substances; X58.XXXA Exposure to other specified factors, initial encounter
CPT/HCPCS: 96361; 96374; 96375; 99282; J1100; J1200; J7030